=== PATIENT | male | born 1995 | race Caucasian/White ===

== ENCOUNTER 2016-08-17 17:24 | Emergency (ER) | payer MEDICAID ==
[~2016-08-17] VITALS: Ht 160 cm; Wt 78.9 kg
[2016-08-17 17:29] VITALS: Ht 160 cm; Wt 78.9 kg
[2016-08-17] MEDS ORDERED: NAPR-260 PO (18:55)
[2016-08-17] MEDS ORDERED: ONDA4TAB11 PO (18:55)
[2016-08-17] MEDS ORDERED: HYDR-902 PO (18:55)
[2016-08-17] MEDS ORDERED: CYCL-319 PO (18:55)
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
== END 2016-08-17 19:09 | disposition home or self-care (01) ==
LOC: FTE 17:24
DX: S39.012A Strain of muscle, fascia and tendon of lower back, initial encounter (principal); S16.1XXA Strain of muscle, fascia and tendon at neck level, initial encounter; S09.90XA Unspecified injury of head, initial encounter; V49.40XA Driver injured in collision with unspecified motor vehicles in traffic accident, initial encounter
CPT/HCPCS: 99284